=== PATIENT | male | born 1970 | race African-American/Black ===

== ENCOUNTER 2022-07-23 13:39 | Emergency (ER) | payer MEDICAID, OTHER ==
[~2022-07-23] VITALS: Ht 170.2 cm; Wt 110.0 kg
[2022-07-23 13:49] VITALS: BP 144/89
[2022-07-23] MEDS ORDERED: KETOROLAC 30MG/ML VIAL IM ONE (15:00)
[2022-07-23] MEDS ORDERED: HYDROCODONE/ACETAMINOPHEN 5/325MG TABLET PO ONE (15:00)
[2022-07-23] MEDS ORDERED: CYCL10TA21 MT (16:02)
[2022-07-23] MEDS ORDERED: ERYT1OIN6 RIGHTEYE (16:02)
[2022-07-23] MEDS ORDERED: NAPR-1176 MT (16:02)
== END 2022-07-23 16:10 | disposition home or self-care (01) ==
LOC: ER 14:39
DX: M25.512 Pain in left shoulder (principal); H10.9 Unspecified conjunctivitis; E78.00 Pure hypercholesterolemia, unspecified; I10 Essential (primary) hypertension
CPT/HCPCS: 73030; 96372; 99283; J1885

== ENCOUNTER 2023-10-15 11:10 | Emergency (ER) | payer MEDICAID, OTHER ==
[~2023-10-15] VITALS: Ht 175.3 cm; Wt 110.0 kg
[~2023-10-15 11:10] MED LIST: CYCL10TA21 MT; ERYT1OIN6 RIGHTEYE; NAPR-1176 MT
[2023-10-15 11:13] VITALS: BP 154/95; PULSE 86; RESP 16; TEMP 98.5; O2SAT 100
[2023-10-15 12:49] LABS: BASOPHILS % 0.3 % (0.0-2.0); EOSINOPHILS % 1.1 % (0.0-5.0); HEMATOCRIT. 45.1 % (42.0-52.0); HEMOGLOBIN. 14.3 g/dL (14.0-18.0); LYMPHOCYTES % 9.2 % (20.0-50.0); MEAN CORPUSCULAR HEMOGLOBIN 29.2 pg (28.0-32.0); MEAN CORPUSCULAR HGB CONC 31.7 g/dL (31.0-37.0); MEAN CORPUSCULAR VOLUME 92.4 fL (80.0-94.0); MEAN PLATELET VOLUME 8.6 fl (7.4-10.4); MONOCYTES % 8.4 % (2.0-8.0); PLATELET 208 x1000/uL (130-400); RED BLOOD CELL COUNT 4.88 mill/uL (4.7-6.1); WHITE BLOOD COUNT 8.1 x1000/uL (4.5-11.0)
[2023-10-15 13:03] LABS: ALANINE AMINOTRANSFERASE 66 IU/L (10-49); ALBUMIN 4.4 g/dL (3.2-4.8); ASPARTATE AMINOTRANSFERASE 36 IU/L (<34); BILIRUBIN TOTAL 0.7 mg/dL (0.1-1.0); CALCIUM 9.3 mg/dL (8.7-10.4); CARBON DIOXIDE 25 mEq/L (21-32); CHLORIDE 106 mEq/L (98-107); CREATININE 1.1 mg/dL (0.6-1.3); GLUCOSE 89 mg/dL (70-105); PROTEIN TOTAL 7.5 g/dL (6.0-8.3); SODIUM 139 mEq/L (136-145); UREA NITROGEN BLOOD 11 mg/dL (9-23)
[2023-10-17] MEDS ORDERED: SPIR25TA6 MT (13:10)
[2023-10-17] MEDS ORDERED: LOSA100T33 PO (13:10)
[2023-10-17] MEDS ORDERED: CARV12.545 MT (13:10)
[2023-10-17] MEDS ORDERED: FURO-151 MT (13:10)
== END 2023-10-15 20:29 | disposition left against medical advice (07) ==
LOC: ER 11:10
DX: R10.13 Epigastric pain (principal); Z53.21 Procedure and treatment not carried out due to patient leaving prior to being seen by health care provider
CPT/HCPCS: 36415; 80053; 85025; 93005; 99281